=== PATIENT | female | born 1995 ===

== ENCOUNTER 2017-02-16 11:05 | Emergency (ER) | payer MEDICAID ==
[2017-02-16 11:19] VITALS: TEMP 98.1; O2SAT 100
[2017-02-16 12:53] VITALS: BP 100/62; PULSE 82; RESP 20
--- NOTE | 2017-02-16 13:07 | C.PDOC ---
History Of Present Illness The patient, a 21 y/o female, presents to the ED for evaluation of right-sided neck and upper back pain which began yesterday. 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 Patient reports taking Tylenol without relief. She denies fever, chills, chest pain, shortness of breath, extremity numbness/weakness, or direct injury/trauma to the affected area. Time Seen by Provider: 02/16/17 11:32 Chief Complaint (Nursing): Back Pain History Per: Patient History/Exam Limitations: no limitations Onset/Duration Of Symptoms: Hrs Current Symptoms Are (Timing): Still Present Quality Of Discomfort: "Pain" Pain Scale Rating Of: 6 Previous Symptoms: Back Pain, Neck Pain Associated Symptoms: denies: Incontinence, New Weakness, New Numbness Exacerbating Factor(s): Turning, Movement Recent travel outside of the [place]: No Additional History Per: Patient Past Medical History Reviewed: Historical Data, Nursing Documentation, Vital Signs Vital Signs: Last Vital Signs Temp 98.1 F 02/16/17 11:17 Pulse 82 02/16/17 12:53 Resp 20 02/16/17 12:53 BP 100/62 02/16/17 12:53 Pulse Ox 100 02/16/17 14:51 - Medical History PMH: No Chronic Diseases Surgical History: No Surg Hx Family History: States: No Known Family Hx - Social History Hx Tobacco Use: No Hx Alcohol Use: No Hx Substance Use: No - Immunization History Hx Tetanus Toxoid Vaccination: No Hx Influenza Vaccination: Yes Hx Pneumococcal Vaccination: No Review Of Systems Except As Marked, All Systems Reviewed And Found Negative. Constitutional: Negative for: Fever, Chills Musculoskeletal: Positive for: Neck Pain (right-sided ), Back Pain (upper ) Neurological: Negative for: Weakness, Numbness Physical Exam - Physical Exam Appears: Non-toxic, No Acute Distress Skin: Normal Color, Warm, Dry, No Rash Head: Atraumatic, Normacephalic Eye(s): bilateral: Normal Inspection, PERRL, EOMI Oral Mucosa: Moist Neck: Normal ROM, Paracervical Tenderness (right-sided ), Supple Chest: Symmetrical, No Deformity, No Tenderness Cardiovascular: Rhythm Regular, No Friction Rub, No Murmur Respiratory: Normal Breath Sounds, No Rales, No Rhonchi, No Wheezing Back: No Vertebral Tenderness, Paraspinal Tenderness (right-sided, parathoracic ) Extremity: Normal ROM, Capillary Refill (less than 2 seconds ) Neurological/Psych: Oriented x3, Normal Speech, Normal Cognition, Normal Motor Gait: Steady ED Course And Treatment O2 Sat by Pulse Oximetry: 100 (on RA) Pulse Ox Interpretation: Normal Progress Note: Patient received Toradol IM and Valium PO. Medical Decision Making Medical Decision Making: On re-exam, the patient reports improvement of symptoms. Ambulatory in the ED with steady gait. Lungs are CTA, heart is RRR, abdomen is soft, non-tender and patient is tolerating PO well. Follow up with the medical doctor within 1-2 days without fail. Return if worsened. Disposition - Disposition Referrals: Gary Joseph MD [Non-Staff] - [facility] [Outside] Disposition: HOME/ ROUTINE Disposition Time: 13:05 Condition: GOOD Additional Instructions: Follow up with the medical doctor within 1-2 days, Return if worsened Prescriptions: Acetaminophen/Codeine [Tylenol/Codeine 300 MG/30 MG] 1 tab PO Q8 PRN #21 tab PRN Reason: Pain, Severe (8-10) diaZEpam [Valium] 5 mg PO TID #21 tab Naproxen [Naprosyn] 500 mg PO BID #20 tab Instructions: Cervical Strain (DC) Forms: Work Excuse - Clinical Impression Clinical Impression: Torticollis, Muscle spasm - PA / [employer] / Resident Statement MD/DO has reviewed & agrees with the documentation as recorded. - Scribe Statement The provider has reviewed the documentation as recorded by the Scribe (Emily Diaz) All medical record entries made by the Scribe were at my direction and personally dictated by me. I have reviewed the chart and agree that the record accurately reflects my personal performance of the history, physical exam, medical decision making, and the department course for this patient. I have also personally directed, reviewed, and agree with the discharge instructions and disposition.
== END 2017-02-16 13:19 | disposition home or self-care (01) ==
LOC: C.ER 11:05
DX: M43.6 Torticollis (principal); M62.830 Muscle spasm of back
CPT/HCPCS: 96372; 99283; J1885

== ENCOUNTER 2018-08-12 18:11 | Emergency (ER) | payer MEDICAID, OTHER ==
[2018-08-12 18:20] VITALS: BP 94/64; PULSE 115; RESP 18; TEMP 98.7; O2SAT 99
[2018-08-12 19:46] LABS: HCG,QUALITATIVE URINE NEGATIVE (NEGATIVE)
[2018-08-12 19:48] LABS: SQUAMOUS EPITHIAL 6 /hpf (0-5); URINE BACTERIA RARE (<OCC); URINE BILIRUBIN NEGATIVE (NEGATIVE); URINE BLOOD 1+ (NEGATIVE); URINE CLARITY Clear (Clear); URINE COLOR Yellow (YELLOW); URINE GLUCOSE (UA) NORMAL (Normal); URINE LEUKOCYTE ESTERASE 1+ Leu/uL (Negative); URINE PROTEIN NEGATIVE (NEGATIVE)
--- NOTE | 2018-08-12 19:59 | C.PDOC ---
History Of Present Illness 23 year old female presents to ED with complaints of lower abdominal pain and dysuria for 2 weeks. She reports self treating with home remedies but no relief. She denies fever, flank pain, vaginal bleeding or . Patient has IUD Time Seen by Provider: 08/12/18 19:15 Chief Complaint (Nursing): Abdominal Pain History Per: Patient History/Exam Limitations: no limitations Onset/Duration Of Symptoms: Days Current Symptoms Are (Timing): Still Present Quality Of Discomfort: "Pain" Associated Symptoms: Urinary Symptoms Past Medical History Reviewed: Historical Data, Nursing Documentation, Vital Signs Vital Signs: Last Vital Signs Temp 98.7 F 08/12/18 18:16 Pulse 115 H 08/12/18 18:16 Resp 18 08/12/18 18:16 BP 94/64 L 08/12/18 18:16 Pulse Ox 99 08/12/18 18:16 - Medical History PMH: No Chronic Diseases Family History: States: Unknown Family Hx - Social History Hx Tobacco Use: No Hx Alcohol Use: Yes Hx Substance Use: No - Immunization History Hx Tetanus Toxoid Vaccination: No Hx Influenza Vaccination: No Hx Pneumococcal Vaccination: No Review Of Systems Constitutional: Negative for: Fever Cardiovascular: Negative for: Chest Pain Respiratory: Negative for: Cough Gastrointestinal: Negative for: Abdominal Pain Genitourinary: Positive for: Dysuria. Negative for: Incontinence, Vaginal Bleeding, Pelvic Pain Neurological: Negative for: Headache Physical Exam - Physical Exam Appears: Non-toxic, No Acute Distress Skin: Warm, Dry Head: Atraumatic, Normacephalic Eye(s): bilateral: Normal Inspection Neck: Supple Chest: Symmetrical Cardiovascular: Rhythm Regular, No Murmur Respiratory: Normal Breath Sounds, No Wheezing Gastrointestinal/Abdominal: Bowel Sounds, Soft, No Tenderness, No Mass, No Distention, No Guarding Back: Normal Inspection, No CVA Tenderness Extremity: Bilateral: Atraumatic, Normal ROM Neurological/Psych: Oriented x3, Normal Speech Gait: Steady ED Course And Treatment O2 Sat by Pulse Oximetry: 99 Pulse Ox Interpretation: Normal Medical Decision Making Medical Decision Making: Patient with dysuria and suprapubic tenderness for 2 weeks. UA shows UTI. Culture sent to lab. Patient treated with Keflex PO. Disposition Counseled Patient/Family Regarding: Diagnosis, Need For Followup, Rx Given - Disposition Referrals: Darwin Rivera MD [Staff Provider] - Disposition: HOME/ ROUTINE Disposition Time: 20:32 Condition: GOOD Additional Instructions: Take antibiotic twice daily and be sure to finish taking all of antibiotic. Drink plenty of fluids. If urine culture was performed, call back for results in 2-3 days for results to confirm antibiotic is treating UTI well. Prescriptions: Cephalexin [cephalexin] 500 mg PO Q12 #14 cap Instructions: Urinary Tract Infection, Adult (DC) Forms: [employer] (Mexican) - POA Present On Arrival: None - Clinical Impression Clinical Impression: UTI (urinary tract infection)
== END 2018-08-12 20:57 | disposition home or self-care (01) ==
LOC: C.ER 18:11
DX: N39.0 Urinary tract infection, site not specified (principal)